=== PATIENT | male | born 1970 | race Caucasian/White ===

== ENCOUNTER 2020-09-13 12:08 | Emergency (ER) | payer MEDICAID ==
[~2020-09-13] VITALS: Ht 172.7 cm; Wt 79.5 kg
[2020-09-13] MEDS ORDERED: ACETAMINOPHEN 325 MG TABLET PO ONE (13:15)
[2020-09-13 14:25] VITALS: BP 131/90
[2020-09-13 14:48] LABS: COVID AG,FIA SOURCE NASOPHARYNGEAL
== END 2020-09-13 15:11 | disposition home or self-care (01) ==
LOC: EMS 12:14
DX: R51.9 Headache, unspecified (principal); R05 Cough; R53.83 Other fatigue; Z20.822 Contact with and (suspected) exposure to COVID-19
CPT/HCPCS: 87426; 99283; C9803; U0003